=== PATIENT | male | born 1960 | race Caucasian/White ===

== ENCOUNTER 2023-03-17 15:20 | Outpatient (CLI) | payer OTHER, SELFPAY ==
--- NOTE | ~2023-03-17 | CT_ITS ---
EXAMINATION: CT abdomen pelvis wo con DATE: 03/17/2023 16:01 INDICATION: Benign prostatic hypertrophy with obstruction. Urinary urgency, frequency. TECHNIQUE: Computed tomography (CT) of the abdomen and pelvis was performed without intravenous contr ast. Automated exposure control and iterative reconstruction technique were employed. Exam dose: 143 0.76 mGy-cm total exam DLP. COMPARISON: None. FINDINGS: The lung bases are clear of infiltrate or consolidation. Normal heart size. Prominent coron dee artery calcifications. No pericardial or pleural effusion. Cholelithiasis. No gallbladder wall thickening or pericholecystic fluid or fat stranding. No bile maury t or pancreatic duct dilatation. Diffuse hepatic steatosis. No hepatic, pancreatic, splenic space-occupying mass lesion. No pancreatic calcification. Normal morphology of the right adrenal gland. Approximately 1.8 cm left adrenal mass with attenuation of 7 Hounsfield units, likely a small adrenal adenoma. At least several fluid attenuation masses of the left kidney measuring up to 2.8 cm, likely renal cys ts, not definitively evaluated on this limited noncontrast examination. No urinary tract calculus or hydroureteronephrosis. There is prominent prostate enlargement and numerous prostate calcifications. The urinary bladder is relatively evacuated, with mild diffuse thickening of the urinary bladder wall suggested. Small bilateral fat-containing inguinal hernias. Small fat-containing umbilical hernia. Normal appendix. No bowel obstruction, bowel wall thickening, pneumatosis or intraperitoneal free air . There is atherosclerotic calcification of the abdominal aorta with fusiform distal infrarenal abdomin al aortic aneurysm measuring up to approximately 3.2 cm maximal diameter. This terminates just proxim al to the origins of the common iliac arteries. No intraperitoneal or retroperitoneal or pelvic mass lesion or adenopathy or ascites. Prominent degenerative disc disease at L5-S1. No suspicious osteolytic or osteoblastic lesions are no quang. IMPRESSION: Prominent prostatomegaly and calcification No urinary tract calculus or hydroureteronephrosis Multiple left renal probable cysts Hepatic steatosis Cholelithiasis Normal appendix Small left adrenal probable adenoma Small bilateral fat-containing inguinal hernias and small fat-containing umbilical hernia Reviewed, dictated and finalized at [facility]. Reviewed, dictated and finalized at [facility]. [facility] SERVICE PROVIDER IMPRESSION: Prominent prostatomegaly and calcification No urinary tract calculus or hydroureteronephrosis Multiple left renal probable cysts Hepatic steatosis Cholelithiasis Normal appendix Small left adrenal probable adenoma Small bilateral fat-containing inguinal hernias and small fat-containing umbili roya hernia
== END 2023-03-17 15:21 | disposition home or self-care (01) ==
PROVIDERS: PCP Physician Assistant Medical; Visit Provider Urology
DX: N40.1 Benign prostatic hyperplasia with lower urinary tract symptoms (principal); K76.0 Fatty (change of) liver, not elsewhere classified; K80.20 Calculus of gallbladder without cholecystitis without obstruction; K40.90 Unilateral inguinal hernia, without obstruction or gangrene, not specified as recurrent; K42.9 Umbilical hernia without obstruction or gangrene
CPT/HCPCS: 74176

== ENCOUNTER 2023-04-05 07:45 | Outpatient (CLI) | payer OTHER, SELFPAY ==
--- NOTE | 2023-04-05 07:57 | ECG_ITS ---
Measurements Intervals [place] Rate: 84 P: 9 CA: 192 QRS: -11 QRSD: 105 T: 108 QT: 354 QTc: 420 Interpretive Statements SINUS RHYTHM MODERATE T-WAVE ABNORMALITY, CONSIDER LATERAL ISCHEMIA [-0.1+ mV T WAVE IN I/aVL/V5/V6] NO PREVIOUS ECG AVAILABLE FOR COMPARISON Electronically Signed On 04-05-2023 15:34:50 [employer] C[employer] OPERATOR by Terrell Whiteside M.D.
== END 2023-04-05 07:46 | disposition home or self-care (01) ==
LOC: ANHSURGERY 07:49
PROVIDERS: PCP Physician Assistant Medical; Visit Provider Urology
DX: Z01.818 Encounter for other preprocedural examination (principal); I10 Essential (primary) hypertension; R93.1 Abnormal findings on diagnostic imaging of heart and coronary circulation
CPT/HCPCS: 93005

== ENCOUNTER 2023-04-07 01:08 | Day surgery (SDC) | payer OTHER, SELFPAY ==
[2023-03-28 14:57] VITALS: BMI 36.9
--- NOTE | 2023-03-28 15:05 | PC.NURSE ---
Report to the Outpatient Waiting Room, entrance under the green pavilion located off [facility], at time 9:15 on date 04/07/23. Planned Procedure Time: 11:15. Time changes happen often and if your time is changed the preop area will call you the afternoon before. - You and your visitor will be asked to self-screen and do not enter if you have any COVID symptoms. - A mask is optional within the hospital at this time. Patients may have clear liquids (water, carbonated beverages, clear teas, apple juice) until 3 hours prior to surgery (8:15) with a maximum of 20 ounces. - No food from midnight until time of surgery Take the following medications with a SIP of water the morning of surgery: INHALER IF NEEDED DO NOT STOP ANY OF YOUR OTHER PRESCRIPTION MEDICATIONS PRIOR TO SURGERY ?EXCEPT THE FOLLOWING Medications to discontinue per physician: VITAMINS Date to take last dose: 04/03/[address] FULTON RE: ASPIRIN Please no make-up, nail czech, hairspray, perfume, deodorant, or body powder the day of surgery. No jewelry (including any body piercings) or valuables the day of surgery, leave them at home. Please take a shower or bath the night before, or the morning of, surgery with an antibacterial soap. Wear comfortable, loose fitting clothing. - Jewelry must be removed prior to entering the operating room. Rings and piercings that are not removed may be cut off. - The hospital will not accept responsibility for valuables. - Please leave all valuables, including medications, at home the day of surgery. If you are going home after surgery, a licensed local company hazmat driver must drive you home. - NO public transportation without another adult if you receive anesthesia. - We recommend that an adult stay with you for 24 hours following discharge. - We also recommend that you do not drive, make important decision, drink alcoholic beverages, or take any drugs that were not prescribed by your health care provider for at least 24 hours after your discharge time. Follow any additional instructions given to you from your surgeon. If you or anyone in your household have experienced Covid symptoms in the past week, please notify your surgeon or the nurse liaison at the phone number below for possible testing. Telephone instructions given to PT - NATE LEES and asked if any additional questions and then verbalized understanding. Patient advised to call surgeon office or pre surgery nurse liaison [phone] if any additional questions.
[2023-04-07] VITALS (8 sets, daily range): BP systolic 148–175; BP diastolic 95–106; PULSE 72–82; RESP 16; TEMP 36.2–36.7; O2SAT 94–99
--- NOTE | 2023-04-07 06:23 | WPDHPUPDATE1 ---
History and Physical Update Update Date/Time: 04/07/23 06:23 History and Physical has been reviewed, including an updated exam of the patient. There are NO changes in the patient's condition. Risks, benefits, and alternatives have been discussed and questions answered. Patient agrees to proceed with procedure.
[2023-04-07] MEDS: LACTATED RINGERS 1,000 ML 30 ML IV CONT (09:30)
--- NOTE | 2023-04-07 10:47 | WPDANESEPPF ---
Anes - Initial Pre Proc Eval Procedure: Operation Date: 04/07/23 11:15 Proposed Procedures p Cystoscopy with Bladder Biopsy, - Law Escobar MD s Trans Urethral Resection Bladder Tumor - Law Escobar MD Date/Time: 04/07/23 10:47 Surgeon: Law Escobar MD Pre Op Diagnosis: possible bladder mass Patient Data Age: 62 Gender: M Height: 1.75 m Weight: 115 kg Last Vital Signs Temp 36.2 C L 04/07/23 10:24 Pulse 81 04/07/23 10:24 Resp 16 04/07/23 10:24 BP 160/95 H 04/07/23 10:24 Pulse Ox 96 04/07/23 10:24 O2 Del Method Room Air 04/07/23 10:24 Allergies Allergy/AdvReac Type Severity Reaction Status Date / Time Penicillins AdvReac Intermediate Diarrhea Verified 04/07/23 10:21 Home Medications Medication Instructions Recorded Confirmed Type metoprolol succinate 50 mg 50 mg PO DAILY 11/17/21 04/07/23 History tablet,extended release 24 hr rosuvastatin 40 mg tablet 40 mg PO DAILY 11/17/21 03/28/23 History aspirin 81 mg tablet,delayed See Rx Instructions .Route 02/02/22 04/07/23 Rx release .COMPLEX #90 tabs amlodipine 5 mg tablet 5 mg PO DAILY #90 tabs 01/27/23 03/28/23 Rx finasteride 5 mg tablet 5 mg PO DAILY #90 tabs 01/27/23 03/28/23 Rx tamsulosin 0.4 mg capsule 0.4 mg PO DAILY #90 caps 01/27/23 03/28/23 Rx fluticasone propionate 50 1 spray intranasal BID #48 grams 03/02/23 03/28/23 Rx mcg/actuation nasal spray,suspension (Flonase Allergy Relief) albuterol sulfate 90 mcg/actuation 1 - 2 inh inhalation Q4-6H PRN 03/18/23 03/28/23 Rx aerosol inhaler shortness of breath or wheezing #8.5 grams montelukast 10 mg tablet 10 mg PO DAILY #30 tabs 03/18/23 03/28/23 Rx (Singulair) multivitamin 1 tablet PO DAILY 03/28/23 03/28/23 History Patient hx anesthesia problems: none Family hx anesthesia problems: none Results Review: All pre-operative results and documents have been reviewed as part of the pre-operative evaluation. [facility] Past Medical History Medical History Ascending aorta dilatation BPH (benign prostatic hyperplasia) CAD (coronary artery disease) Erectile dysfunction due to arterial disease HTN (hypertension) Impaired fasting blood sugar Surgical History Surgical History H/O anterior cruciate ligament surgery H/O heart artery stent H/O right knee surgery Family History Family History Father Heart disease Mother Hypertension Social History Social History Smoking packs per day: 0.5 Smoking cigarettes per day: 10.0 Years smoked: 50 Smoking pack-years: 25.00 Smoking status: Current every day smoker Tobacco type: cigarettes Second hand tobacco smoke exposure: No Alcohol intake: never Substance use: never Substance use type: does not use Lack of Transportation: No Lack of Food: Never True Current Housing: I Have Housing Concerned About Future Housing: No Difficulty Paying Gas/Electric Bills: No Difficulty Paying for Meds: No Currently Unemployed: No Education: High School Diploma/GED Difficulty w/ Childcare or Family Care: No Living arrangements: with family Occupation/Education: occupation Gender identity (if verbalized by the patient): Male Sexual Orientation (if Verbalized by the Patient): Straight or Heterosexual Spiritual care concerns: No Anes - Eval Final PreProcedure Day of Procedure 04/07/23 10:47 Patient weight: obese Heart: regular rate and rhythm Lungs: clear to auscultation Airway: Mallampati scale class II Neurological: alert and oriented Last oral intake: >/= 8 hours ASA classification: III Emergent: no Anesthetic plan: proceed Anesthesia type and monitoring: general LMA and standard monitoring Results Review: All pr
[2023-04-07] MEDS: ceFAZolin 2 GM/D5W 50 ML 2 GM/50 ML BAG IVPB (11:15)
[2023-04-07] MEDS: LIDOCAINE HCL 2% GEL UROJET 10 ML PKG MUCOUS MEM (11:20)
--- NOTE | 2023-04-07 11:55 | W.PM.PROC2 ---
Procedure Note - Detailed Date of Procedure 04/07/23 Pre-op Diagnosis Possible bladder mass Post-op Diagnosis Same Procedure Performed TURBT (large, 4-5 cm) Surgeon Law Escobar MD Anesthesia General Description of Procedure Patient is brought to the operative suite was prepped and draped in routine sterile fashion while in dorsal lithotomy position after the uneventful induction of general LMA anesthetic. Cystoscopy was undertaken with a 24 F resectoscope. 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 This neoplasm has the gross appearance of hyperplastic prostate tissue but, again, does not attached to the prostate itself. the lesion is just to the left midline. Upon initiating resection with a 24 F loop electrode I was able to identify the left ureteral orifice above this lesion. I had preserved each ureteral orifice without any electrocautery. The lesion is resected and sent in its entirety to the bladder floor. The base and periphery of the resected site was cauterized. As I had discussed with the patient I opted not to proceed with formal TURP at this time. Patient tolerated the procedure well. I did place a [address] catheter which I suspect I can remove prior to discharge Drains Yes Packing Yes Pathology Yes Complications No immediate complications
[2023-04-07] MEDS: fentaNYL CITRATE INJ (*CRX) 100 MCG/2 ML VIAL 25 MCG IV PUSH ×4 (12:14→12:35)
[2023-04-07] MEDS: oxyCODONE HCL (*CRX) 5 MG TAB IR PO (13:53)
== END 2023-04-07 13:55 | disposition home or self-care (01) ==
PROVIDERS: PCP Physician Assistant Medical; Visit Provider Urology
PROC: 0TBB8ZX Excision of Bladder, Via Natural or Artificial Opening Endoscopic, Diagnostic (ICD-10-PCS; CPT 52204; principal; 2023-04-07 11:15)
PROC: 0TBB8ZZ Excision of Bladder, Via Natural or Artificial Opening Endoscopic (ICD-10-PCS; CPT 52235; 2023-04-07 11:15)
DX: N32.89 Other specified disorders of bladder (principal); N40.1 Benign prostatic hyperplasia with lower urinary tract symptoms; R35.0 Frequency of micturition; R39.198 Other difficulties with micturition; I10 Essential (primary) hypertension; F17.210 Nicotine dependence, cigarettes, uncomplicated; N52.1 Erectile dysfunction due to diseases classified elsewhere; E66.9 Obesity, unspecified; Z68.37 Body mass index [BMI] 37.0-37.9, adult; Z79.82 Long term (current) use of aspirin; Z79.51 Long term (current) use of inhaled steroids; Z98.890 Other specified postprocedural states; Z95.5 Presence of coronary angioplasty implant and graft; Z86.79 Personal history of other diseases of the circulatory system; Z82.49 Family history of ischemic heart disease and other diseases of the circulatory system
CPT/HCPCS: 52235; 88305; 88341; 88342; 93005; A9270; J0690; J1100; J2405; J2704; J3010; J7120